=== PATIENT | female | born 1945 | race African-American/Black ===

== ENCOUNTER 2019-11-09 23:01 | Inpatient (IN) | payer MEDICARE, MEDICAID ==
[~2019-11-09] VITALS: Ht 162.6 cm; Wt 64.4 kg
[2019-11-09] MEDS ORDERED: ACETAMINOPHEN WITH CODEINE 300/30MG TABLET PO STA (23:10)
[2019-11-09] MEDS ORDERED: ONDANSETRON 4MG ODT PO ONE (23:30)
[2019-11-09 23:35] LABS: CHLORIDE 108 mEq/L (98-107)
[2019-11-09 23:38] LABS: PROTHROMBIN TIME 10.9 sec (9.6-11.0)
[2019-11-09 23:40] LABS: BASOPHILS % 0.4 % (0.0-2.0); EOSINOPHILS % 0.3 % (0.0-5.0); HEMATOCRIT. 36.6 % (36.0-48.0); HEMOGLOBIN. 12.1 g/dL (12.0-16.0); LYMPHOCYTES % 12.6 % (20.0-50.0); MEAN CORPUSCULAR HEMOGLOBIN 27.5 pg (28.0-32.0); MEAN CORPUSCULAR VOLUME 83.5 fL (81.0-99.0); MEAN PLATELET VOLUME 9.2 fl (7.4-10.4); MONOCYTES % 5.8 % (2.0-8.0); NEUTROPHILS % 80.9 % (40.0-76.0); PLATELET 241 x1000/uL (130-400); RED BLOOD CELL COUNT 4.39 mill/uL (4.2-5.4); RED CELL DISTRIBUTION WIDTH 14.6 % (11.6-14.6)
[2019-11-10 00:38] LABS: CLARITY URINE TURBID (CLEAR); COLOR URINE ORANGE (YELLOW); KETONES URINE NEGATIVE (NEGATIVE); LEUKOCYTE ESTERASE URINE 3+ (NEGATIVE); NITRITE URINE NEGATIVE (NEGATIVE); OCCULT BLOOD URINE 3+ (NEGATIVE); PROTEIN URINE 2+ (NEGATIVE); SPECIFIC GRAVITY URINE 1.021 (1.005-1.030); UROBILINOGEN URINE 0.2 E.U./dL (0.2-1.0)
[2019-11-10] MEDS ORDERED: CEFTRIAXONE 1 G PREMIX 50 ML IV ONE (01:15)
[2019-11-10 02:55] VITALS: BP 109/64
[2019-11-10 04:00] VITALS: BP 109/57
[2019-11-10] MEDS: MORPHINE SULFATE 2 MG/ML CPJ (NOT FOR IM USE) IV PRN ×4 (04:56→20:18)
[2019-11-10] MEDS ORDERED: DOCUSATE SODIUM 100MG CAPSULE PO PRN (07:15)
[2019-11-10] MEDS ORDERED: LORAZEPAM 2MG/ML CPJ IV PRN (07:15)
[2019-11-10] MEDS ORDERED: ONDANSETRON HCL 4MG/2ML INJ IV PRN (07:15)
[2019-11-10] MEDS ORDERED: MAGNESIUM/ALUMINUM HYDROXIDE/SIMETHICONE 30ML UDC PO PRN (07:15)
[2019-11-10] MEDS ORDERED: GUAIFENESIN 200MG/10ML SUGAR FREE UDC PO PRN (07:15)
[2019-11-10] MEDS ORDERED: CEFTRIAXONE 1 G PREMIX 50 ML IV SCH (07:15)
[2019-11-10] MEDS ORDERED: HYDRALAZINE 20MG/ML VIAL IV PRN (07:15)
[2019-11-10] MEDS ORDERED: CLONIDINE 0.1MG TABLET PO PRN (07:15)
[2019-11-10] MEDS ORDERED: IPRATROPIUM/ALBUTEROL 0.5-3(2.5)MG/3ML NEB HHN PRN (07:15)
[2019-11-10] MEDS ORDERED: ACETAMINOPHEN 325MG TABLET PO PRN (07:15)
[2019-11-10] MEDS ORDERED: HYDRALAZINE 10 MG in SODIUM CHLORIDE 0.9% 49.5 ML IV PRN (07:30)
[2019-11-10 08:00] VITALS: BP 107/60
[2019-11-10] MEDS: SODIUM CHLORIDE 0.45% 1,000 ML IV SCH (08:35)
[2019-11-10 08:58] LABS: HEMATOCRIT. 35.6 % (36.0-48.0); HEMOGLOBIN. 11.7 g/dL (12.0-16.0); MEAN CORPUSCULAR HEMOGLOBIN 27.8 pg (28.0-32.0); MEAN CORPUSCULAR VOLUME 84.4 fL (81.0-99.0); MEAN PLATELET VOLUME 9.6 fl (7.4-10.4); RED BLOOD CELL COUNT 4.22 mill/uL (4.2-5.4); RED CELL DISTRIBUTION WIDTH 14.6 % (11.6-14.6)
[2019-11-10] MEDS: CEFTRIAXONE 1 G PREMIX 50 ML IV SCH (11:10)
[2019-11-10 12:00] VITALS: BP 111/56
[2019-11-10 13:09] LABS: HEMATOCRIT 35.6 % (36.0-48.0); HEMOGLOBIN 11.5 g/dL (12.0-16.0); MEAN CORPUSCULAR HEMOGLOBIN 27.1 pg (28.0-32.0); MEAN CORPUSCULAR VOLUME 83.8 fL (81.0-99.0); PLATELET 246 x1000/uL (130-400); RED BLOOD CELL COUNT 4.25 mill/uL (4.2-5.4); RED CELL DISTRIBUTION WIDTH 14.7 % (11.6-14.6)
[2019-11-10 13:25] LABS: PLATELET ESTIMATE NORMAL
[2019-11-10 13:26] LABS: PLATELET 247 x1000/uL (130-400)
[2019-11-10] MEDS: SODIUM CHLORIDE 0.9% INJ 3ML FLUSH IVF SCH (14:26)
[2019-11-10 16:00] VITALS: BP 120/61
[2019-11-10 20:00] VITALS: BP 127/64
[2019-11-10] MEDS ORDERED: POTASSIUM CHLORIDE 20MEQ TABLET SR PO NR (23:15)
[2019-11-11] VITALS: BP 134/67
[2019-11-11] MEDS: SODIUM CHLORIDE 0.45% 1,000 ML IV SCH ×2 (00:13→10:55)
[2019-11-11] MEDS: SODIUM CHLORIDE 0.9% INJ 3ML FLUSH IVF SCH ×4 (00:14→22:04)
[2019-11-11] MEDS: MORPHINE SULFATE 2 MG/ML CPJ (NOT FOR IM USE) IV PRN ×5 (00:19→18:07)
[2019-11-11 04:00] VITALS: BP 123/73
[2019-11-11 06:47] LABS: HEMATOCRIT. 32.4 % (36.0-48.0); HEMOGLOBIN. 10.7 g/dL (12.0-16.0); MEAN CORPUSCULAR HEMOGLOBIN 27.3 pg (28.0-32.0); MEAN CORPUSCULAR VOLUME 82.7 fL (81.0-99.0); MEAN PLATELET VOLUME 8.9 fl (7.4-10.4); PLATELET 221 x1000/uL (130-400); RED BLOOD CELL COUNT 3.92 mill/uL (4.2-5.4); RED CELL DISTRIBUTION WIDTH 14.8 % (11.6-14.6)
[2019-11-11 07:00] LABS: CHLORIDE 109 mEq/L (98-107)
[2019-11-11 07:07] LABS: PHOSPHORUS 3.2 mg/dL (2.5-4.9)
[2019-11-11 07:09] LABS: CREATINE KINASE 16 IU/L (26-192)
[2019-11-11 07:23] LABS: HEPATITIS B SURFACE ANTIGEN NEGATIVE
[2019-11-11 08:00] VITALS: BP 126/68
[2019-11-11] MEDS: CEFTRIAXONE 1 G PREMIX 50 ML IV SCH (08:24)
[2019-11-11 12:00] VITALS: BP 133/72
[2019-11-11 13:03] LABS: PLATELET ESTIMATE NORMAL
[2019-11-11 16:00] VITALS: BP 137/73
[2019-11-11] MEDS: METRONIDAZOLE 500MG TABLET PO SCH ×2 (17:22→22:02)
[2019-11-11] MEDS: CEFEPIME 1,000 MG in DEXTROSE 5% WATER 50 ML IV SCH (17:22)
[2019-11-11 20:00] VITALS: BP 142/78
[2019-11-11] MEDS: HYDROCODONE/ACETAMINOPHEN 10/325MG TABLET PO PRN (20:51)
[2019-11-12] VITALS: BP 137/64
[2019-11-12] MEDS: HYDROCODONE/ACETAMINOPHEN 10/325MG TABLET PO PRN ×3 (02:08→13:05)
[2019-11-12 04:00] VITALS: BP 130/69
[2019-11-12] MEDS: SODIUM CHLORIDE 0.9% INJ 3ML FLUSH IVF SCH (05:16)
[2019-11-12] MEDS: CEFEPIME 1,000 MG in DEXTROSE 5% WATER 50 ML IV SCH ×2 (05:17→17:18)
[2019-11-12] MEDS: SODIUM CHLORIDE 0.45% 1,000 ML IV SCH (05:17)
[2019-11-12] MEDS: METRONIDAZOLE 500MG TABLET PO SCH ×3 (06:04→20:32)
[2019-11-12 06:49] LABS: HEMATOCRIT. 33.4 % (36.0-48.0); MEAN CORPUSCULAR HEMOGLOBIN 27.4 pg (28.0-32.0); MEAN CORPUSCULAR VOLUME 83.1 fL (81.0-99.0); MEAN PLATELET VOLUME 8.8 fl (7.4-10.4); PLATELET 224 x1000/uL (130-400); RED BLOOD CELL COUNT 4.03 mill/uL (4.2-5.4)
[2019-11-12 07:18] LABS: CHLORIDE 108 mEq/L (98-107)
[2019-11-12 08:00] VITALS: BP 130/73
[2019-11-12] MEDS: MORPHINE SULFATE 2 MG/ML CPJ (NOT FOR IM USE) IV PRN ×3 (09:41→23:02)
[2019-11-12 11:59] LABS: PLATELET ESTIMATE NORMAL
[2019-11-12 12:00] VITALS: BP 130/71
[2019-11-12 16:00] VITALS: BP 128/59
[2019-11-12 20:00] VITALS: BP 150/77
[2019-11-13] VITALS: BP 131/73
[2019-11-13] MEDS: MORPHINE SULFATE 2 MG/ML CPJ (NOT FOR IM USE) IV PRN ×4 (03:42→20:11)
[2019-11-13 04:00] VITALS: BP 116/83
[2019-11-13] MEDS: METRONIDAZOLE 500MG TABLET PO SCH ×3 (05:24→21:25)
[2019-11-13] MEDS: CEFEPIME 1,000 MG in DEXTROSE 5% WATER 50 ML IV SCH ×2 (05:24→17:03)
[2019-11-13 08:00] VITALS: BP 129/77
[2019-11-13 08:17] LABS: HEMATOCRIT. 33.6 % (36.0-48.0); HEMOGLOBIN. 11.2 g/dL (12.0-16.0); MEAN CORPUSCULAR HEMOGLOBIN 27.4 pg (28.0-32.0); MEAN CORPUSCULAR VOLUME 82.3 fL (81.0-99.0); MEAN PLATELET VOLUME 8.6 fl (7.4-10.4); PLATELET 248 x1000/uL (130-400); RED BLOOD CELL COUNT 4.08 mill/uL (4.2-5.4); RED CELL DISTRIBUTION WIDTH 14.7 % (11.6-14.6)
[2019-11-13 08:38] LABS: CHLORIDE 108 mEq/L (98-107)
[2019-11-13 11:44] LABS: PLATELET ESTIMATE NORMAL
[2019-11-13 12:00] VITALS: BP 147/78
[2019-11-13 16:00] VITALS: BP 150/89
[2019-11-13 20:00] VITALS: BP 125/74
[2019-11-13] MEDS: SODIUM CHLORIDE 0.9% INJ 3ML FLUSH IVF SCH (21:25)
[2019-11-13] MEDS: DIPHENHYDRAMINE 50MG/ML VIAL IV PRN (22:39)
[2019-11-14] VITALS: BP 121/81
[2019-11-14] MEDS: MORPHINE SULFATE 2 MG/ML CPJ (NOT FOR IM USE) IV PRN ×3 (00:31→21:58)
[2019-11-14] MEDS: HYDROCODONE/ACETAMINOPHEN 10/325MG TABLET PO PRN (02:36)
[2019-11-14 04:00] VITALS: BP 127/81
[2019-11-14] MEDS: SODIUM CHLORIDE 0.9% INJ 3ML FLUSH IVF SCH ×3 (05:12→21:57)
[2019-11-14] MEDS: METRONIDAZOLE 500MG TABLET PO SCH ×3 (05:12→21:57)
[2019-11-14] MEDS: CEFEPIME 1,000 MG in DEXTROSE 5% WATER 50 ML IV SCH ×2 (05:12→17:02)
[2019-11-14] MEDS: SODIUM CHLORIDE 0.45% 1,000 ML IV SCH (05:30)
[2019-11-14 05:47] LABS: CHLORIDE 107 mEq/L (98-107)
[2019-11-14 06:03] LABS: HEMATOCRIT. 31.7 % (36.0-48.0); HEMOGLOBIN. 10.5 g/dL (12.0-16.0); MEAN CORPUSCULAR HEMOGLOBIN 27.3 pg (28.0-32.0); MEAN CORPUSCULAR VOLUME 82.2 fL (81.0-99.0); MEAN PLATELET VOLUME 8.9 fl (7.4-10.4); PLATELET 251 x1000/uL (130-400); RED BLOOD CELL COUNT 3.85 mill/uL (4.2-5.4); RED CELL DISTRIBUTION WIDTH 14.5 % (11.6-14.6)
[2019-11-14 12:00] VITALS: BP 153/75
[2019-11-14 14:17] LABS: PLATELET ESTIMATE NORMAL
[2019-11-14 20:00] VITALS: BP 143/77
[2019-11-15] VITALS: BP 137/77
[2019-11-15] MEDS: DIPHENHYDRAMINE 50MG/ML VIAL IV PRN (00:54)
[2019-11-15] MEDS: MORPHINE SULFATE 2 MG/ML CPJ (NOT FOR IM USE) IV PRN (03:29)
[2019-11-15 04:00] VITALS: BP 136/64
[2019-11-15] MEDS: SODIUM CHLORIDE 0.9% INJ 3ML FLUSH IVF SCH ×2 (05:51→14:10)
[2019-11-15] MEDS: METRONIDAZOLE 500MG TABLET PO SCH ×2 (05:51→14:08)
[2019-11-15] MEDS: HYDROCODONE/ACETAMINOPHEN 10/325MG TABLET PO PRN (05:51)
[2019-11-15] MEDS: CEFEPIME 1,000 MG in DEXTROSE 5% WATER 50 ML IV SCH (05:51)
[2019-11-15 06:47] LABS: CHLORIDE 104 mEq/L (98-107)
[2019-11-15 06:58] LABS: BASOPHILS % 0.2 % (0.0-2.0); EOSINOPHILS % 1.9 % (0.0-5.0); HEMATOCRIT. 32.5 % (36.0-48.0); HEMOGLOBIN. 10.6 g/dL (12.0-16.0); LYMPHOCYTES % 9.6 % (20.0-50.0); MEAN CORPUSCULAR VOLUME 82.5 fL (81.0-99.0); MEAN PLATELET VOLUME 8.7 fl (7.4-10.4); NEUTROPHILS % 84.3 % (40.0-76.0); PLATELET 299 x1000/uL (130-400); RED BLOOD CELL COUNT 3.94 mill/uL (4.2-5.4); RED CELL DISTRIBUTION WIDTH 14.6 % (11.6-14.6)
[2019-11-15 08:00] VITALS: BP 148/76
[2019-11-15] MEDS: SODIUM CHLORIDE 0.45% 1,000 ML IV SCH (08:55)
[2019-11-15 12:00] VITALS: BP 119/64
[2019-11-15] MEDS ORDERED: HYDROCODONE/ACETAMINOPHEN 10/325MG TABLET PO PRN (13:45)
[2019-11-15 15:45] VITALS: BP 119/64
[2019-11-15 16:00] VITALS: BP 134/65
== END 2019-11-15 17:50 | disposition home or self-care (01) | DRG 871 ==
LOC: ER 23:01 → 6EST 11-10 01:49 → ENRESERV 11-10 02:23
PROVIDERS: ADMIT Internal Medicine; ATTEND Internal Medicine
DX: A41.9 Sepsis, unspecified organism (principal); E43 Unspecified severe protein-calorie malnutrition; N17.0 Acute kidney failure with tubular necrosis; N39.0 Urinary tract infection, site not specified; K86.1 Other chronic pancreatitis; B19.20 Unspecified viral hepatitis C without hepatic coma; D64.9 Anemia, unspecified; E87.6 Hypokalemia; I12.9 Hypertensive chronic kidney disease with stage 1 through stage 4 chronic kidney disease, or unspecified chronic kidney disease; E11.22 Type 2 diabetes mellitus with diabetic chronic kidney disease; N18.2 Chronic kidney disease, stage 2 (mild); K52.9 Noninfective gastroenteritis and colitis, unspecified; E87.5 Hyperkalemia; B96.20 Unspecified Escherichia coli [E. coli] as the cause of diseases classified elsewhere; B96.89 Other specified bacterial agents as the cause of diseases classified elsewhere; N18.9 Chronic kidney disease, unspecified; R80.9 Proteinuria, unspecified; Z68.24 Body mass index [BMI] 24.0-24.9, adult; C55 Malignant neoplasm of uterus, part unspecified
CPT/HCPCS: 36415; 74176; 80048; 80053; 81003; 82550; 83735; 84100; 85025; 85027; 86803; 87077; 87186; 87340; 93970; 97162; 97166; 97530; 97535; 99285; J0692; J0696; J1200; J2270; J7060; Q0162

== ENCOUNTER → 2023-05-04 | Day surgery (SDC) | payer MEDICARE, MEDICAID ==
[~2023-05-04] VITALS: Ht 167.6 cm; Wt 41.7 kg
[~2023-05-04] MED LIST: ASPI-1497 PO; ATOR10TA PO; BALANCED SALT IRRIG SOLN COMB1 500ML OP NR; DEXAMETHASONE 4MG/ML 1ML VIAL ONE; FENTANYL CITRATE/PF 50MCG/ML 2ML VIAL IV PRN; HYALURONATE SODIUM 10 MG/ML 0.55ML SYRINGE IO ONE; METHYLPREDNISOLONE SOD SUCC 40MG/ML (ACT-O-VIAL) ONE; NIFE-32 PO; ONDANSETRON HCL 4MG/2ML INJ ONE; PHENYLEPHRINE 2.5% OPHTH 15 DROP/ML BOTTLE RIGHTEYE ONE; PROPOFOL 200MG/20ML VIAL IV ONE; TOBRAMYCIN/DEXAMETHASONE OPTH DROPS 2.5ML ONE; TRIAMCINOLONE ACETONIDE 40MG/ML 1ML VIAL ONE; TROPICAMIDE 1% OPHTH DROPS 15ML RIGHTEYE ONE
== END | disposition home or self-care (01) ==
LOC: OR 07:23
PROVIDERS: ATTEND Ophthalmology
DX: H25.89 Other age-related cataract (principal); I11.0 Hypertensive heart disease with heart failure; I50.9 Heart failure, unspecified; Z86.73 Personal history of transient ischemic attack (TIA), and cerebral infarction without residual deficits; Z79.899 Other long term (current) drug therapy; Z98.890 Other specified postprocedural states; Z90.49 Acquired absence of other specified parts of digestive tract
CPT/HCPCS: 82962; 93005; 66984; J1100; J2405; J2704; J3490; A4217; Z7610 ×18; V2632; J2920; J3301